=== PATIENT | male | born 1950 | race American Indian/Alaskan Native ===

== ENCOUNTER 2018-04-22 17:14 | Emergency (ER) | payer MEDICARE ==
[2018-04-22 19:12] LABS: Hemoglobin 14.2 gm/dl (11.8-15.2)
[2018-04-22 19:21] LABS: Mean Corpuscular Hemoglobin 28 pg (28-32); Mean Corpuscular Volume 87 fl (84-94); Red Blood Count 4.98 M/mm3 (3.65-5.03)
[2018-04-22 19:22] LABS: Hematocrit 43.4 % (35.5-45.6); Lymphocytes % (Auto) 24.5 % (13.4-35.0); Mean Corpuscular HGB Conc 33 % (32-34); Platelet Count 305 K/mm3 (140-440); Red Cell Distribution Width 15.2 % (13.2-15.2)
[2018-04-22 19:23] LABS: BUN/Creatinine Ratio 13; Basophils % (Auto) 0.5 % (0.0-1.8); Blood Urea Nitrogen 13 mg/dL (9-20); Calcium 9.2 mg/dL (8.4-10.2); Hemolysis Index 1; Monocytes % (Auto) 8.4 % (0.0-7.3)
[2018-04-22 19:24] LABS: Eosinophils # (Auto) 0.1 K/mm3 (0.0-0.4); Lymphocytes # (Auto) 2.3 K/mm3 (1.2-5.4); Monocytes # (Auto) 0.8 K/mm3 (0.0-0.8)
[2018-04-23] MEDS ORDERED: ATIVAN IM PRN (06:58)
[2018-04-23] MEDS ORDERED: ZOFRAN ODT PO PRN (06:58)
[2018-04-23] MEDS ORDERED: MOTRIN PO ONE (06:58)
--- NOTE | 2018-04-23 06:59 | Emergency Department Report ---
ED General Adult HPI - General Chief complaint: Medical Clearance Stated complaint: MEDICAL CLEARANCE Time Seen by Provider: 04/23/18 03:57 Source: patient Mode of arrival: Ambulatory Limitations: No Limitations - History of Present Illness Initial comments: This is a 67-year-old male who was unknown to this provider, has a history of hypertension, who was sent to the ER by a local psychiatric hospital for medical clearance, per the patient was attempting to enter for voluntary alcohol detox and therapy and depression. The patient denies homicidality and suicidality. The patient's main complaint to me is atraumatic right flank pain for the past 3 days, and difficulty urinating for the past 3 days. He denies testicular pain , and dysuria, as well as phallic pain. He denies abdominal pain. His symptoms are constant, they do not radiate anywhere, they do not have exacerbating or relieving factors. He is not homicidal or suicidal as not having hallucinations, and also denies access to guns, firearms. -: Gradual Location: back Radiation: non-radiation Severity scale (0 -10): 8 Quality: aching Consistency: constant Improves with: none Worsens with: none Associated Symptoms: other (see history of present illness). denies: confusion , chest pain, cough, diaphoresis, fever/chills, headaches, loss of appetite, malaise, nausea/vomiting, rash, seizure, shortness of breath, syncope, weakness - Related Data Allergies Allergy/AdvReac Type Severity Reaction Status Date / Time No Known Allergies Allergy Unverified 04/22/18 17:53 ED Review of Systems ROS: Stated complaint: MEDICAL CLEARANCE Other details as noted in HPI Comment: All other systems reviewed and negative ED Past Medical Hx - Past Medical History Hx Hypertension: Yes - Surgical History Past Surgical History?: Yes Additional Surgical History: Neck surgery - Social History Smoking Status: Current Every Day Smoker Substance Use Type: Alcohol ED Physical Exam - General Limitations: No Limitations General appearance: alert, in no apparent distress - Head Head exam: Present: atraumatic, normocephalic - Eye Eye exam: Present: normal appearance, EOMI. Absent: nystagmus - ENT ENT exam: Present: normal exam, normal orophraynx, mucous membranes moist, normal external ear exam - Neck Neck exam: Present: normal inspection, full ROM - Respiratory Respiratory exam: Present: normal lung sounds bilaterally. Absent: respiratory distress - Cardiovascular Cardiovascular Exam: Present: regular rate, normal rhythm, normal heart sounds. Absent: bradycardia, tachycardia, irregular rhythm, systolic murmur, diastolic murmur, rubs, gallop - GI/Abdominal GI/Abdominal exam: Present: soft, normal bowel sounds. Absent: distended, tenderness, guarding, rebound, rigid, pulsatile mass - Rectal Rectal exam: Present: deferred - Extremities Exam Extremities exam: Present: normal inspection, full ROM, normal capillary refill. Absent: pedal edema, joint swelling, calf tenderness - Back Exam Back exam: Present: normal inspection, full ROM. Absent: tenderness, CVA tenderness (R), paraspinal tenderness, vertebral tenderness - Neurological Exam Neurological exam: Present: alert, oriented X3, CN II-XII intact, normal gait, other (Extraocular movements intact. Tongue midline. No facial droop. Facial sensation intact to light touch in the V1, V2, V3 distribution bilaterally. 5 and 5 strength in 4 extremities.. Sensation is intact to light touch in 4 extremities.). Absent: motor sensory deficit - Psychiatric Psychiatric exam: Present: normal affect, normal mood. Absent: homicidal ideation, suicidal ideation - Skin Skin exam: Present: warm, dry, intact, normal color. Absent: rash ED Course Vital Signs 04/22/18 04/23/18 17:49 03:00 Temperature 98.0 F 97.5 F L Pulse Rate 67 66 Respiratory 18 16 Rate Blood Pressure 131/92 Blood Pressure 126/75 [Right] O2 Sat by Pulse 96 97 Oximetry - Reevaluation(s) Reevaluation #1: 04/23/18 08:33 Differential diagnosis, including not limited to: Renal colic, obstructive uropathy, urinary tract infection, medical clearance for alcohol detox Assessment and plan: 67-year-old male with a triage complaint of request for medical clearance for voluntary placement for alcohol detox. On review of systems he endorses difficulty urinating and back pain. He is afebrile with reassuring vital signs, has a benign physical examination within normal neurologic examination, Celestine Coma Scale of 15, walks with a steady gait, no pulsatile abdominal mass, equal pulses in the lower extremities. His exam and history are not consistent with AAA or epidural compression syndrome. His laboratory studies were unremarkable, a noncontrast CT scan of the abdomen and pelvis was unremarkable with some incidental findings the patient was able to urinate and fill half a urinal. He does not require 1013, and he can follow up with an outpatient urologist at his convenience for his probable obstructive prostatic hypertrophy. At this point in time, they did not appear to be an immediate medical contraindication to detox, the patient is medically suitable to continue detox. ED Medical Decision Making - Lab Data Result diagrams: 04/22/18 18:47 04/22/18 18:47 Vital Signs 04/22/18 04/23/18 17:49 03:00 Temperature 98.0 F 97.5 F L Pulse Rate 67 66 Respiratory 18 16 Rate Blood Pressure 131/92 Blood Pressure 126/75 [Right] O2 Sat by Pulse 96 97 Oximetry Lab Results 04/22/18 04/22/18 04/22/18 Range/Units 18:47 18:47 18:47 WBC (4.5-11.0) K/mm3 RBC (3.65-5.03) M/mm3 Hgb (11.8-15.2) gm/dl Hct (35.5-45.6) % MCV (84-94) fl MCH (28-32) pg MCHC (32-34) % RDW (13.2-15.2) % Plt Count (140-440) K/mm3 Lymph % (Auto) (13.4-35.0) % Daniels % (Auto) (0.0-7.3) % Eos % (Auto) (0.0-4.3) % Baso % (Auto) (0.0-1.8) % Lymph # (1.2-5.4) K/mm3 Daniels # (0.0-0.8) K/mm3 Eos # (0.0-0.4) K/mm3 Baso # (0.0-0.1) K/mm3 Seg Neutrophils % (40.0-70.0) % Seg Neutrophils # (1.8-7.7) K/mm3 Sodium 138 (137-145) mmol/L Potassium 4.1 (3.6-5.0) mmol/L Chloride 96.2 L (98-107) mmol/L Carbon Dioxide 28 (22-30) mmol/L Anion Gap 18 mmol/L BUN 13 (9-20) mg/dL Creatinine 1.0 (0.8-1.5) mg/dL Estimated GFR > 60 ml/min BUN/Creatinine Ratio 13 % Glucose 113 H (75-100) mg/dL Calcium 9.2 (8.4-10.2) mg/dL Salicylates < 0.3 L (2.8-20.0) mg/dL Acetaminophen < 5.0 L (10.0-30.0) ug/mL Plasma/Serum Alcohol (0-0.07) % 04/22/18 04/22/18 Range/Units 18:47 18:47 WBC 9.4 (4.5-11.0) K/mm3 RBC 4.98 (3.65-5.03) M/mm3 Hgb 14.2 (11.8-15.2) gm/dl Hct 43.4 (35.5-45.6) % MCV 87 (84-94) fl MCH 28 (28-32) pg MCHC 33 (32-34) % RDW 15.2 (13.2-15.2) % Plt Count 305 (140-440) K/mm3 Lymph % (Auto) 24.5 (13.4-35.0) % Daniels % (Auto) 8.4 H (0.0-7.3) % Eos % (Auto) 1.0 (0.0-4.3) % Baso % (Auto) 0.5 (0.0-1.8) % Lymph # 2.3 (1.2-5.4) K/mm3 Daniels # 0.8 (0.0-0.8) K/mm3 Eos # 0.1 (0.0-0.4) K/mm3 Baso # 0.0 (0.0-0.1) K/mm3 Seg Neutrophils % 65.6 (40.0-70.0) % Seg Neutrophils # 6.1 (1.8-7.7) K/mm3 Sodium (137-145) mmol/L Potassium (3.6-5.0) mmol/L Chloride (98-107) mmol/L Carbon Dioxide (22-30) mmol/L Anion Gap mmol/L BUN (9-20) mg/dL Creatinine (0.8-1.5) mg/dL Estimated GFR ml/min BUN/Creatinine Ratio % Glucose (75-100) mg/dL Calcium (8.4-10.2) mg/dL Salicylates (2.8-20.0) mg/dL Acetaminophen (10.0-30.0) ug/mL Plasma/Serum Alcohol < 0.01 (0-0.07) % - Radiology Data Radiology results: report reviewed Print Report Referring Physician: JB HIGGINS Patient Name: GINGER PARKS Date of : 1950 Sex: Male Report Date: 2018-04-23 Report Status: Finalized Findings [facility] [address] [id number] Cat Scan Report Signed Patient: GINGER PARKS MR#: [id number] : 1950 Acct:[id number] Age/Sex: 67 / M ADM Date: 04/22/18 Loc: ED Attending Dr: Ordering Physician: JB HIGGINS MD Date of Service: 04/23/18 Procedure(s): CT abdomen pelvis wo con Accession Number(s): [id number] cc: JB HIGGINS MD FINAL REPORT EXAM: CT ABDOMEN PELVIS WO CON HISTORY: back pain urinary obstruction TECHNIQUE: CT images obtained through the Abdomen and Pelvis without contrast. Transaxial,coronal and sagittal reformats are provided. PRIORS: None. FINDINGS: Imaged intrathoracic contents are remarkable for bibasilar linear atelectasis/scarring. Kidneys are normal in size, axis and position. No hydronephrosis or nephrolithiasis. Mild bilateral perinephric stranding. The ureters are normal in course and caliber. No stones are seen within the urinary bladder. Scattered pancreatic calcifications may be sequela of remote pancreatitis. The liver, gallbladder, pancreas, spleen, and adrenal glands otherwise demonstrate an unremarkable noncontrast appearance. Hollow enteric organs are normal in course and caliber. Appendix is normal. No intra-abdominal free air/fluid or lymphadenopathy. Aorta is normal in course and caliber with scattered atherosclerosis. Superficial soft tissues are unremarkable. No acute or aggressive appearing skeletal findings. There [id number] sequela of L5-S1 disc degeneration. IMPRESSION: No CT evidence of obstructive urolithiasis or other acute abdominal or pelvic findings. Consider recently passed stone or upper urinary tract infection to explain patient's symptoms. Transcribed By: MB Dictated By: JB CHRISTIAN MD Electronically Authenticated By: JB CHRISTIAN MD Signed Date/Time: 04/23/18 7531 Critical care attestation.: If time is entered above; I have spent that time in minutes in the direct care of this critically ill patient, excluding procedure time. ED Disposition Clinical Impression: Medical clearance for psychiatric admission, Back pain Disposition: DC-01 TO HOME OR SELFCARE Is pt being admited?: No Does the pt Need Aspirin: No Condition: Stable Instructions: Benign Prostatic Hypertrophy (ED) Additional Instructions: The patient should continue outpatient medications. The patient should follow- up with the urology specialist within the next 4-6 weeks for further evaluation of difficulty with urination. Not following up as recommended may result in undiagnosed tumor, cancer, malignancy. Please return to the ER right away with new pain, worsening pain, migration of pain, fevers, chills, lethargy, irritability, projectile vomiting, change in mental status, confusion, inability to tolerate liquid feedings. Referrals: SYDNEY GUEVARA MD [Primary Care Provider] - 3-5 Days QASIM REA MD [Staff Physician] - 3-5 Days
--- NOTE | 2018-04-23 08:29 | Cat Scan Report ---
FINAL REPORT EXAM: CT ABDOMEN PELVIS WO CON HISTORY: back pain urinary obstruction TECHNIQUE: CT images obtained through the Abdomen and Pelvis without contrast. Transaxial,coronal and sagittal reformats are provided. PRIORS: None. FINDINGS: Imaged intrathoracic contents are remarkable for bibasilar linear atelectasis/scarring. Kidneys are normal in size, axis and position. No hydronephrosis or nephrolithiasis. Mild bilateral perinephric stranding. The ureters are normal in course and caliber. No stones are seen within the urinary bladder. Scattered pancreatic calcifications may be sequela of remote pancreatitis. The liver, gallbladder, pancreas, spleen, and adrenal glands otherwise demonstrate an unremarkable noncontrast appearance. Hollow enteric organs are normal in course and caliber. Appendix is normal. No intra-abdominal free air/fluid or lymphadenopathy. Aorta is normal in course and caliber with scattered atherosclerosis. Superficial soft tissues are unremarkable. No acute or aggressive appearing skeletal findings. There [id number] sequela of L5-S1 disc degeneration. IMPRESSION: No CT evidence of obstructive urolithiasis or other acute abdominal or pelvic findings. Consider recently passed stone or upper urinary tract infection to explain patient's symptoms.
[2018-04-23 09:50] LABS: Bilirubin,Urine NEG (Negative); Blood,Urine NEG (Negative); Color,Urine Yellow (Yellow); Mucus,Urine FEW /HPF; Protein,Urine <15 mg/dL mg/dL (Negative); Urobilinogen,Urine < 2.0 mg/dL (<2.0)
[2018-04-23 10:18] LABS: Amphetamine Screen,Urine PRESUMPTIVE NEGATIVE; Benzodiazepines Screen,Urine PRESUMPTIVE NEGATIVE; Cannabinoid Screen,Urine PRESUMPTIVE NEGATIVE; Cocaine Screen,Urine PRESUMPTIVE NEGATIVE; Methadone Screen,Urine PRESUMPTIVE NEGATIVE; Opiate Screen,Urine PRESUMPTIVE NEGATIVE
[2018-04-23 13:39] VITALS: BP 108/77
== END 2018-04-23 11:15 | disposition home or self-care (01) ==
LOC: EEVIPCON 17:14 → ED 17:14
DX: M54.9 Dorsalgia, unspecified (principal); F32.9 Major depressive disorder, single episode, unspecified; R10.30 Lower abdominal pain, unspecified; F17.200 Nicotine dependence, unspecified, uncomplicated
CPT/HCPCS: 36415; 74176; 80048; 80307; 81001; 85025; 99284; G0480; 80320